=== PATIENT | male | born 1970 | race Two or more races ===

== ENCOUNTER 2018-02-20 21:43 | Emergency (ER) | payer MEDICAID ==
[2018-02-20] MEDS ORDERED: NS 1,000 ML IV ONE (21:47)
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
[2018-02-20] MEDS ORDERED: CHLORDIAZEPOXIDE 25MG PREPK#6 BTL TAKEHOME ONE (23:06)
[2018-02-20 23:28] VITALS: BP 138/92
== END 2018-02-20 23:29 | disposition home or self-care (01) ==
LOC: EDUNIT#
DX: F10.920 Alcohol use, unspecified with intoxication, uncomplicated (principal); Z87.891 Personal history of nicotine dependence

== ENCOUNTER 2018-02-21 15:55 | Emergency (ER) | payer MEDICAID ==
[2018-02-21 16:11] VITALS: BP 128/91
--- NOTE | 2018-02-21 16:13 | EDPHY ---
H & P Time Seen by Provider: 02/21/18 15:56 HPI/ROS: HPI Alcohol intoxication, PTSD. 47-year-old male on foot. He has a history of alcohol abuse and polysubstance abuse. He has been drinking today. He states that his last drink was about 5- 6 hours ago. He states that he needs help with his PTSD. He denies suicidal ideations. There is no history of trauma or assault. No other complaints. ROS: Constitutional: No fever, no chills. No weakness. Eyes: No discharge. No changes in vision. ENT: No sore throat. No nasal congestion or rhinorrhea. Respiratory: No cough. No shortness of breath. Cardiac: No chest pain, no palpitations. Gastrointestinal: No abdominal pain, no vomiting, no diarrhea. Genitourinary: No hematuria. No dysuria or increased frequency with urination. Musculoskeletal: No back pain. No neck pain. No myalgias or arthralgias. Skin: No rashes. Neurological: No headache. No focal weakness or altered sensation. Past medical history: Anxiety, alcohol abuse. Social history: Homeless. As above. Physical Exam: General Appearance: Alert, intoxicated, strong odor of alcohol on his breath. This patient is responding to questions appropriately albeit was slurred speech. This patient appears well-hydrated and well-nourished. Head: Normocephalic atraumatic. Eyes: Pupils equal and round no pallor or injection. No lid edema, erythema or injection. Respiratory: There are no retractions, lungs are clear to auscultation with good air movement bilaterally. Cardiovascular: Regular rate and rhythm. No murmur. Gastrointestinal: Abdomen is soft and nontender, no masses, bowel sounds normal. No focal tenderness at McBurney's point. No Olivares sign. Neurological: Motor sensory function is grossly intact. Cranial nerves are normal. Able to ambulate without assistance. Skin: Warm and dry, no rashes. Musculoskeletal: Neck is supple and nontender. Extremities are symmetrical. All joints range without pain or impingement. Psychiatric: No agitation. No depression. Database: EKG: Imaging: Procedures: Emergency department course: This patient is not suicidal. He is intoxicated. He is not welcome at the [facility] secondary to co ingestion of benzodiazepines. At this time I do not feel he meets criteria for further emergency department management. He will be discharged to the street. I have given him follow-up with [facility]. He can contact them regarding evaluation and management of his PTSD as well as detox programs for his alcohol abuse. Return to emergency department precautions were reviewed with him. All of his questions were answered. He was discharged from the emergency department in good condition. Differential Diagnosis: The differential diagnosis on this patient includes but is not limited to alcohol intoxication, PTSD. Suicidal, homicidal ideation, acute psychosis unlikely. This represents a partial list of diagnoses considered. These considerations are based on history, physical exam, past history, reassessment and diagnostic testing. Smoking Status: Former smoker Constitutional: Initial Vital Signs Temperature (C) 36.7 C 02/21/18 16:01 Heart Rate 100 02/21/18 16:01 Respiratory Rate 16 02/21/18 16:01 Blood Pressure 128/91 H 02/21/18 16:01 O2 Sat (%) 96 02/21/18 16:01 O2 Delivery Mode Room Air Allergies/Adverse Reactions: No Known Allergies Allergy (Verified 02/20/18 21:49) Home Medications: Medication Instructions Recorded Herbals/Supplements -Info Only 1 ea PO DAILY 06/30/16 Ibuprofen [Motrin (*)] 600 mg PO BID PRN 06/30/16 Cymbalta 02/20/18 Gabapentin 02/20/18 Xanax 02/20/18 traZODone 02/20/18 Departure - Departure Disposition: Home, Routine, Self-Care Clinical Impression: Alcohol intoxication Condition: Good Instructions: Alcohol Intoxication (ED) Additional Instructions: Read and follow provided instructions. Follow-up with [facility] this week regarding your PTSD and to discuss detox options for treatment of your alcohol abuse. Take your medication as prescribed only. Return to the emergency department for worsening symptoms or other serious concerns. Referrals: NONE *PRIMARY CARE P,. [Primary Care Provider] - As per Instructions
== END 2018-02-21 16:33 | disposition home or self-care (01) ==
LOC: EDUNIT#
DX: F10.129 Alcohol abuse with intoxication, unspecified (principal); Z87.891 Personal history of nicotine dependence

== ENCOUNTER 2018-02-21 22:41 | Emergency (ER) | payer MEDICAID ==
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
[2018-02-22 01:56] VITALS: BP 118/67
== END 2018-02-22 01:55 | disposition home or self-care (01) ==
LOC: EDUNIT#
DX: F10.129 Alcohol abuse with intoxication, unspecified (principal); Z87.891 Personal history of nicotine dependence

== ENCOUNTER 2018-02-22 03:47 | Emergency (ER) | payer MEDICAID ==
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
[2018-02-22 05:14] LABS: PLATELET COUNT 179 10^3/uL (150-400)
[2018-02-22 14:39] VITALS: BP 138/101
== END 2018-02-22 14:37 | disposition home or self-care (01) ==
DX: F33.2 Major depressive disorder, recurrent severe without psychotic features (principal); F10.920 Alcohol use, unspecified with intoxication, uncomplicated; Z87.891 Personal history of nicotine dependence
CPT/HCPCS: 80305; G0480

== ENCOUNTER 2018-02-23 11:26 | Emergency (ER) | payer MEDICAID ==
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
[2018-02-23] MEDS ORDERED: NS 1,000 ML IV ONE (19:59)
[2018-02-23] MEDS ORDERED: CHLORDIAZEPOXIDE 25MG PREPK#6 BTL TAKEHOME ONE (20:49)
[2018-02-23 20:51] VITALS: BP 130/88
== END 2018-02-23 21:22 | disposition home or self-care (01) ==
LOC: EDUNIT#
DX: F10.920 Alcohol use, unspecified with intoxication, uncomplicated (principal); E86.9 Volume depletion, unspecified; Z87.891 Personal history of nicotine dependence
CPT/HCPCS: G0480

== ENCOUNTER 2018-02-24 18:30 | Emergency (ER) | payer MEDICAID ==
[2018-02-24 18:45] VITALS: BP 134/94
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
--- NOTE | 2018-02-25 14:03 | ASDISCHSUM ---
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 Pt hadn't been seen at [facility] since Sep 2016; when asked where pt has been living since then, pt was unable to provide a coherent answer but there was mention of him being in [place] and/or [place]. Pt was here on 02/22/18 for voluntarily wanting a mental health evaluation, but by the time the patient sobered up to be evaluated, pt said he didn't want to wait any longer and so he left. Pt returned on 02/23/18 for being heavily intoxicated and due to pt's having benzodiazepines in his UDS (pt states he had a prescription for Xanax but doesn't have the bottle w/him), the [facility] would not accept him. Pt was sobering up in the ED because he could not be safely discharged and for another possible mental health evaluation This CM interacted with patient at this time and he was so heavily intoxicated he could not follow a conversation re:homeless resources, etc. At the time this CM left for the day, the plan was to see if pt sobered up enough to understand discharge instructions and if he didn't want to wait for a mental health eval, he would be provided a cab voucher to the [facility] for that night (various packet of information, cab voucher and instructions given to ED RN). But if pt sobered up and did want to wait for a mental health evaluation, then they would call [facility] to initiate an eval. Per chart review, it appears pt was continuing to drink vodka (which was in his backpack/suitcase) while in the ED and so he was never sobering up. Pt was ultimately discharged to the detox (not sure how due to their prior refusal to accept because of benzos in his system) and then was later discharged from the detox at 7 a.m. Pt then arrived to the ED on 02/24/18 at 18 for "wanting gatorade and a sandwich" and a mental health eval. After ED staff spoke to pt about his previous visit and him continuing to drink ETOH in the ED, the pt voluntarily left the ED. If pt returns to the ED again for ETOH intoxication and voluntarily wanting a mental health eval, and pt is able to follow the conversation and is deemed clinically sober and overall appropriate to be discharged from the ED: ask pt if he would be willing to go to [facility] and then please attempt to get pt to the [facility] in order to complete the Coordinate Entry process. If the [facility] is not open: because pt has not gone through the CE assessment, he would have a one-night lisbeth stay at both the [facility] (even though [facility] is closed for the summer for walk-up stays) and at the [facility] senior care for that night (even if [facility] is closed). Or if pt's UDS eventually comes back negative for benzos, consider discharging pt to detox. Also consider placing patient on another detainer and attempt to have pt evaluated by [facility]. Pt has a psychiatric history and has been hospitalized at [facility] 3 inpatient unit in December and March of 2014. Pt has stated "I think I need to get back on my meds. I need help," but he is heavily intoxicated when he makes these statements and when he is sober he refuses to wait to have the eval. CM available for further assistance if needed. Date Signed: 02/25/2018 02:00 PM Electronically Signed By:Nicci Sjoden, RN Intervention Information
== END 2018-02-24 19:02 | disposition home or self-care (01) ==
DX: T73.0XXA Starvation, initial encounter (principal); F10.229 Alcohol dependence with intoxication, unspecified; F17.200 Nicotine dependence, unspecified, uncomplicated

== ENCOUNTER 2018-11-23 17:47 | Emergency (ER) | payer MEDICAID ==
[2018-11-23 17:54] VITALS: BP 160/104
[2018-11-23] MEDS ORDERED: CHLORDIAZEPOXIDE 25MG PREPK#6 BTL TAKEHOME ONE (18:04)
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
== END 2018-11-23 18:15 | disposition home or self-care (01) ==
DX: F10.129 Alcohol abuse with intoxication, unspecified (principal)